=== PATIENT | female | born 1965 | race Caucasian/White ===

== ENCOUNTER → 2023-04-28 | Outpatient (CLI) | payer BC ==
--- NOTE | 2023-04-28 14:47 | USB ---
Reason for Exam: Additional evaluation requested from prior study. Patient History: Menarche at age 16. First Full-Term at age 27. Postmenopausal. Currently using Hormonal Contraceptives, beginning at age 19 for 12 years. Risk Values: Bhakti 5 year model risk: 1.2%. NCI Lifetime model risk: 8.1%. Technique: Method: Targeted. Prior Study Comparison: 01/15/2021 Bilateral Screening Mammogram, Unknown. 06/25/2022 Bilateral Screening Mammogram, Unknown. 06/27/2022 Left Screening Mammogram, Unknown. Findings: The lateral section of the breast of the left breast, the axilla of the left breast and the retroareolar of the left breast were scanned. Targeted ultrasound upper outer quadrant left breast including the subareolar region and axilla. At the 4:00 position, 8 cm from the nipple, there is a benign 5 x 3 x 2 mm cyst, possible mammographic correlate. Ongoing short interval follow up recommended for the mammographic nodularity. No other solid or cystic lesion. A prominent but benign, fatty replaced axillary lymph node noted in the axilla. Overall Assessment: Probably benign, BI-RAD 3 Management: Diagnostic Mammogram of both breasts in 6 months. Total one-year follow-up left breast annual exam of the right breast. A clinical breast exam by your physician is recommended on an annual basis and results should be correlated with mammographic findings. This exam should not preclude additional follow-up of suspicious palpable abnormalities. Results were given to the patient verbally at the time of exam. Electronically signed and approved by: Kathie Gaspar M.D. Radiologist
--- NOTE | 2023-04-28 15:06 | MM ---
Reason for Exam: Follow-up at short interval from prior study. Last screening mammogram was performed 10 month(s) ago. Patient History: Menarche at age 16. First Full-Term at age 27. Postmenopausal. Currently using Hormonal Contraceptives, beginning at age 19 for 12 years. Risk Values: Bhakti 5 year model risk: 1.2%. NCI Lifetime model risk: 8.1%. Prior Study Comparison: 10/30/2008 Left Diagnostic Mammogram, [facility]. 11/13/2009 Bilateral Diagnostic Mammogram, [facility]. 07/22/2011 Bilateral Screening Mammogram, [facility]. 01/22/2020 Bilateral Screening Mammogram, Unknown. 01/15/2021 Bilateral Screening Mammogram, Unknown. 06/25/2022 Bilateral Screening Mammogram, Unknown. 06/27/2022 Left Screening Mammogram, Unknown. Tissue Density: Left: There are scattered fibroglandular densities. Findings: Analyzed By CAD. Area of 9 mm circumscribed nodularity 3:00 position left breast posterior depth is now apparent on the MLO view. Possibly slightly larger. Ultrasound recommended. Overall Assessment: Incomplete: need additional imaging evaluation, BI-RAD 0 Management: Diagnostic Breast Ultrasound of the left breast. Electronically signed and approved by: Kathie Gaspar M.D. Radiologist
== END | disposition home or self-care (01) ==
LOC: RADMAMWWP 13:32
PROVIDERS: ATTEND Obstetrics & Gynecology
DX: R92.322 Mammographic fibroglandular density, left breast (principal); Z78.0 Asymptomatic menopausal state
CPT/HCPCS: 77061; 77065

== ENCOUNTER → 2023-06-05 | Outpatient (CLI) | payer BC ==
--- NOTE | 2023-06-05 09:03 | US ---
EXAMINATION TYPE: US abdomen complete DATE OF EXAM: 06/05/2023 COMPARISON: NONE CLINICAL INDICATION: Female, 57 years old with history of R10.9 UNSPECIFIED ABDOMINAL PAIN; RUQ pain that comes and goes for about 6 months. Patient states that she feels it is worse after fattier food s. TECHNIQUE: Multiple sonographic images of the abdomen are obtained. FINDINGS: EXAM MEASUREMENTS: Liver Length: 15.9 cm Gallbladder Wall: 0.2 cm CBD: 0.5 cm Spleen: 7.0 cm Right Kidney: 11.7 x 4.6 x 5.3 cm Left Kidney: 11.8 x 6.6 x 6.0 cm [employer]ATOR NOTES: Limited due to overlying bowel gas Pancreas: Obscured by bowel gas Liver: wnl as best visualized. Portions obscured by gas Gallbladder: No stones seen Evidence for sonographic Levin's sign: No CBD: wnl Spleen: wnl Right Kidney: No hydronephrosis or masses seen as best visualized Left Kidney: No hydronephrosis or masses seen as best visualized Upper IVC: wnl Abd Aorta: wnl as best visualized, portions obscured by gas The liver is homogenous. The intrahepatic portion of the IVC and proximal abdominal aorta are within normal limits. There is no evidence of cholelithiasis. Common bile duct is unremarkable. The visu alized portions of the pancreas are homogenous. The spleen is unremarkable. Kidneys are symmetric a nd free of hydronephrosis. No renal lesions are seen. IMPRESSION: No discrete abnormality appreciated.
== END | disposition home or self-care (01) ==
LOC: RADUSWWP 08:11
PROVIDERS: ATTEND Internal Medicine
DX: R10.11 Right upper quadrant pain (principal)
CPT/HCPCS: 76700

== ENCOUNTER → 2023-06-19 | Outpatient (CLI) | payer BC ==
--- NOTE | 2023-06-19 10:23 | NM ---
EXAMINATION TYPE: NM hepatobiliary w EF DATE OF EXAM: 06/19/2023 9:04 AM COMPARISON: 06/05/2023. CLINICAL INDICATION:Female, 57 years old with history of R10.9 Unspecified abdominal pain; TECHNIQUE: The patient was given 4.93 mCi of Technetium 99m-Mebrofenin as a radiotracer and multiple scintigraphic images were obtained of the abdomen. Gallbladder function was also assessed after the administration of ensure drink and additional scintigraphic images were obtained of the abdomen. A re gion of interest was drawn over the gallbladder and a timing activity curve was generated. The gallbl adder ejection fraction was calculated. FINDINGS: Normal uptake of radiotracer was identified within the liver with excretion into the hepatic and comm on biliary ducts . There was normal progressive washout of the liver over the course of the study. Ra diotracer uptake within the gallbladder as well as small bowel activity was identified. Maximum calculated gallbladder ejection fraction is: 83 % at 30 minutes (Normal gallbladder ejection fraction is > 35%) IMPRESSION: 1. Normal hepatobiliary scan. 2. Normal ejection fraction.
== END | disposition home or self-care (01) ==
LOC: RADNMMAIN 06:53
PROVIDERS: ATTEND Internal Medicine
DX: R10.9 Unspecified abdominal pain (principal)
CPT/HCPCS: 78226; A9537

== ENCOUNTER → 2024-02-25 | Outpatient (CLI) | payer BC ==
--- NOTE | 2024-02-25 11:00 | MM ---
Reason for Exam: Follow-up at short interval from prior study. Last mammogram was performed 1 year(s) and 8 month(s) ago. Patient History: Menarche at age 16. First Full-Term at age 27. Postmenopausal. Currently using Hormonal Contraceptives, beginning at age 19 for 12 years. Risk Values: Bhakti 5 year model risk: 1.3%. NCI Lifetime model risk: 8.0%. Tissue Density: The breasts are heterogeneously dense, which may obscure small masses. Findings: Analyzed By CAD. No suspicious microcalcifications are seen. Chronic nodule left breast. Ultrasound recommended. No evidence for distortion. Overall Assessment: Incomplete: need additional imaging evaluation, BI-RAD 0 Management: Diagnostic Breast Ultrasound of the left breast. . Results were given to the patient verbally at the time of exam. Patient should continue monthly self-breast exams. A clinical breast exam by your physician is recommended on an annual basis. This exam should not preclude additional follow-up of suspicious palpable abnormalities. Note on Bhakti scores and lifetime risk: 1. A Bhakti score greater than 3% is considered moderate risk. If this is the case, consider specialist referral to assess eligibility for a risk reducing agent. 2. If overall lifetime risk for the development of breast cancer is 20% or higher, the patient may qualify for future screening with alternating mammogram and breast MRI. [facility], , 02/25/2024 10:57 AM. Electronically signed and approved by: Marco Moody M.D. Radiologis
--- NOTE | 2024-02-25 11:47 | USB ---
Reason for Exam: Follow-up at short interval from prior study. Patient History: Menarche at age 16. First Full-Term at age 27. Postmenopausal. Currently using Hormonal Contraceptives, beginning at age 19 for 12 years. Risk Values: Bhakti 5 year model risk: 1.3%. NCI Lifetime model risk: 8.0%. Technique: Method: Targeted. Prior Study Comparison: 06/25/2022 Bilateral Screening Mammogram, Unknown. 06/27/2022 Left Screening Mammogram, Unknown. 04/28/2023 Left MG 3D diag mammo w/cad LT, [facility]. Findings: The lateral section of the breast of the left breast, the axilla of the left breast and the retroareolar of the left breast were scanned. Gluteal 4:00 area left breast seen previously is not reproduced. Left axillary lymph node has normalized in size. No suspicious solid masses seen. Overall Assessment: Benign, BI-RAD 2 Management: Screening Mammogram of both breasts in 1 year. A clinical breast exam by your physician is recommended on an annual basis and results should be correlated with mammographic findings. This exam should not preclude additional follow-up of suspicious palpable abnormalities. Results were given to the patient verbally at the time of exam. [facility], , 02/25/2024 11:41 AM. Electronically signed and approved by: Marco Moody M.D. Radiologis
== END | disposition home or self-care (01) ==
LOC: RADMAMWWP 10:23
PROVIDERS: ATTEND Obstetrics & Gynecology
CPT/HCPCS: 77062; 77066